=== PATIENT | female | born 1985 | race Two or more races ===

== ENCOUNTER 2024-01-01 13:24 | Outpatient (CLI) | payer OTHER ==
[2024-01-01 14:30] LABS: URINE APPEARANCE Clear; URINE BILIRRUBIN Negative (NEGATIVE); URINE BLOOD Negative; URINE COLOR Yellow; URINE GLUCOSE Negative (NEGATIVE); URINE LEUKOCYTE Negative; URINE NITRATE Negative; URINE PROTEIN Negative (NEGATIVE); URINE UROBILINOGEN 0.2 E.U./dl
[2024-01-01 14:34] LABS: URINE BACTERIA 171.3 uL (0.0-1933); URINE EPITHELIAL CELLS 5.5 uL (0.0-38.8); URINE RBC 4.3 uL (0.0-20.8); URINE WBC 1.8 uL (0.0-23.2)
== END 2024-01-01 13:25 | disposition home or self-care (01) ==
LOC: LAB 13:24
PROVIDERS: ATTEND Obstetrics & Gynecology
DX: N30.00 Acute cystitis without hematuria (principal)

== ENCOUNTER 2024-06-10 13:28 | Outpatient (CLI) | payer OTHER | END 2024-06-10 13:42 | disposition home or self-care (01) | LOC: SONOGRAMA 13:28 | PROVIDERS: ATTEND Urology | DX: N39.0 Urinary tract infection, site not specified (principal); N95.2 Postmenopausal atrophic vaginitis ==

== ENCOUNTER → 2025-04-30 08:30 | Outpatient (CLI) | payer OTHER ==
[2025-04-30 09:20] LABS: BASO % 0.8 % (0.1-1.2); EOS # 0.44 (0.04-0.54); EOS % 8.5 % (0.7-7.0); LYMPH # 1.62 (1.18-3.74); LYMPH % 31.2 % (19.3-53.1); MEAN PLATELET VOLUME 10.90 fl (9.4-12.4); MONO # 0.24 (0.24-0.82); MONO % 4.6 % (4.7-12.5); NEUT # 2.84 (1.56-6.13); NEUT % 54.7 % (34.0-71.1); RED CELL DISTRIBUTION WIDTH 12.8 % (11.6-14.4)
[2025-04-30 09:38] LABS: URINE APPEARANCE Cloudy; URINE BILIRRUBIN Negative (NEGATIVE); URINE BLOOD Negative; URINE COLOR Yellow; URINE GLUCOSE Negative (NEGATIVE); URINE KETONE Negative (NEGATIVE); URINE LEUKOCYTE Moderate; URINE NITRATE Positive; URINE PROTEIN Negative (NEGATIVE); URINE UROBILINOGEN 0.2 E.U./dl
[2025-04-30 09:39] LABS: URINE EPITHELIAL CELLS 46.7 uL (0.0-38.8); URINE RBC 10.9 uL (0.0-20.8); URINE WBC 74.1 uL (0.0-23.2)
[2025-04-30 09:58] LABS: ALT/SGPT 21.0 U/L (12-78); AST/SGOT 13.0 U/L (15-37); BILIRUBIN TOTAL 0.67 mg/dL (0.3-1.2); BUN CREA RATIO 19.0 (7.0-25.0); CHOL HDL RATIO 3.3 (0-5.0); CREATININE SERUM 0.69 mg/dL (0.55-1.02); GFR 93.3; GLOBULINA 2.9 G/DL (2.4-3.5); GLUCOSE FASTING 84.0 mg/dL (65-100); HDL 72.0 mg/dl (40-60); LDL 142.0 mg/dl (0-130); OSMOLALITY SERUM 282.0 MOSM/KG (275-295); T4 TOTAL 7.93 UG/DL (4.8-13.9); TSH 1.39 uIU/mL (0.358-3.74); VLDL 20.0 (0-39)
[2025-04-30 10:14] LABS: URINE BACTERIA > 9821.5 uL (0.0-1933); URINE CAST 0.43 uL (0.0-1.40)
[2025-04-30 13:25] LABS: T3 TOTAL 1.03 ng/ml (0.846-2.02); VITAMIN D3 25 HYDROXY 47.43 ng/ml (30-120)
[2025-05-01 07:07] LABS: hav igm Negative (Negative); hep b c Negative (Negative); hep b s ag Negative (Negative)
[2025-05-01 09:11] LABS: ESTRADIOL SERUM 155.0 pg/mL (.)
== END | disposition home or self-care (01) ==
LOC: LAB 08:30
PROVIDERS: ATTEND Obstetrics & Gynecology
DX: D50.8 Other iron deficiency anemias (principal); N39.0 Urinary tract infection, site not specified; E07.89 Other specified disorders of thyroid; I11.9 Hypertensive heart disease without heart failure; E78.3 Hyperchylomicronemia; E55.9 Vitamin D deficiency, unspecified; N95.1 Menopausal and female climacteric states; N95.8 Other specified menopausal and perimenopausal disorders; L68.0 Hirsutism; A63.8 Other specified predominantly sexually transmitted diseases; K90.49 Malabsorption due to intolerance, not elsewhere classified

== ENCOUNTER 2025-05-06 13:20 | Outpatient (CLI) | payer OTHER ==
[2025-05-06 14:37] LABS: FE 120.0 ug/dl (50-170)
[2025-05-12 09:11] LABS: T T 8 ng/dL (4-50); test free 0.5 pg/mL (0.0-4.2)
== END 2025-05-06 13:21 | disposition home or self-care (01) ==
LOC: LAB 13:20
DX: D64.9 Anemia, unspecified (principal); Z13.0 Encounter for screening for diseases of the blood and blood-forming organs and certain disorders involving the immune mechanism; Z13.228 Encounter for screening for other metabolic disorders; Z13.29 Encounter for screening for other suspected endocrine disorder; E55.9 Vitamin D deficiency, unspecified

== ENCOUNTER → 2025-05-24 10:33 | Outpatient (CLI) | payer OTHER ==
[2025-05-24 11:22] LABS: URINE APPEARANCE Clear; URINE BACTERIA 1210.5 uL (0.0-1933); URINE BILIRRUBIN Negative (NEGATIVE); URINE BLOOD Negative; URINE COLOR Yellow; URINE EPITHELIAL CELLS 31.5 uL (0.0-38.8); URINE GLUCOSE Negative (NEGATIVE); URINE KETONE Negative (NEGATIVE); URINE LEUKOCYTE Negative; URINE NITRATE Negative; URINE PROTEIN Negative (NEGATIVE); URINE RBC 3.3 uL (0.0-20.8); URINE UROBILINOGEN 0.2 E.U./dl; URINE WBC 7.5 uL (0.0-23.2)
[2025-05-24 11:29] LABS: URINE CAST 0.14 uL (0.0-1.40)
== END | disposition home or self-care (01) ==
LOC: LAB 10:33
DX: D50.8 Other iron deficiency anemias (principal); N39.0 Urinary tract infection, site not specified; E07.89 Other specified disorders of thyroid; I11.9 Hypertensive heart disease without heart failure; E78.3 Hyperchylomicronemia; E55.9 Vitamin D deficiency, unspecified; K90.49 Malabsorption due to intolerance, not elsewhere classified; N95.1 Menopausal and female climacteric states; N95.8 Other specified menopausal and perimenopausal disorders; L68.0 Hirsutism